=== PATIENT | female | born 1970 | race Caucasian/White ===

== ENCOUNTER 2019-03-11 15:24 | Emergency (ER) | payer OTHER ==
[~2019-03-11] VITALS: Ht 157.5 cm; Wt 57.7 kg
[2019-03-11 15:45] VITALS: Ht 157.5 cm; Wt 57.7 kg
[2019-03-11] MEDS ORDERED: ESCI20TA38 PO (16:06)
[2019-03-11] MEDS ORDERED: ALPR2TAB PO (16:06)
[2019-03-11] MEDS ORDERED: MIRT30TA5 PO (16:07)
[2019-03-11] MEDS ORDERED: BUSP15TA3 PO (16:08)
[2019-03-11] MEDS ORDERED: DICY10CA40 PO (16:51)
--- NOTE | 2019-03-11 16:51 | ERD ---
ER Documentation Chief Complaint Chief Complaint BIB RA from clinic: RLQ AP x1d, RLE numbness x1.5 weeks HPI This 48-year-old female who says that she was seen in outside ER for right foot numbness and had a work-up that was negative. She thought her numbness to return recently been 2 weeks. Told her that peripheral neuropathy can take up to 6 months. She is also stating that she ate some fatty food and then about 30 minutes later had sharp stabbing with crampy right upper quadrant pain with nausea vomiting x1 that was nonbilious nonbloody. The time EMS arrived her pain is gone. She had no chest pain or shortness of breath at all. Currently she is completely asymptomatic ROS All systems reviewed and are negative except as per history of present illness. Medications Home Meds Reported Medications Buspirone Hcl* (Buspirone Hcl*) 15 Mg Tablet, 15 MG PO TID, TAB 03/11/19 Mirtazapine* (Mirtazapine*) 30 Mg Tablet, 30 MG PO HS, TAB 03/11/19 Escitalopram Oxalate* (Escitalopram Oxalate*) 20 Mg Tablet, 20 MG PO DAILY, #30 TAB 03/11/19 Alprazolam* (Xanax*) 2 Mg Tablet, 1 MG PO BID PRN for ANXIETY, TAB 03/11/19 Allergies Allergies: Coded Allergies: No Known Allergy (Unverified , 03/11/19) PMhx/Soc History of Surgery: No Anesthesia Reaction: No Hx Neurological Disorder: No Hx Respiratory Disorders: No Hx Cardiac Disorders: No Hx Psychiatric Problems: No Hx Miscellaneous Medical Probl: No Hx Alcohol Use: No Hx Substance Use: No Hx Tobacco Use: No Smoking Status: Current every day smoker FmHx Family History: No coronary disease Physical Exam Vitals Vital Signs Date Temp Pulse Resp B/P (MAP) Pulse Ox O2 O2 Flow FiO2 Time Delivery Rate 03/11/19 97.9 86 15 113/92 100 15:45 (99) 03/11/19 98.2 97 18 125/86 98 15:42 (99) Physical Exam Const: Well-developed, well-nourished Head: Atraumatic, normocephalic Eyes: Normal Conjunctiva, PERRLA, EOMI, normal sclera, no nystagmus ENT: Normal External Ears, Nose and Mouth, moist mucus membranes. Neck: Full range of motion. No meningismus, no lymphadenopathy. Resp: Clear to auscultation bilaterally, no wheezing, rhonchi, rales Cardio: Regular rate and rhythm, no murmurs, S1 S2 present Abd: Soft, non tender x 4, non distended. Normal bowel sounds, no guarding or rebound, no pulsitile abdominal masses or bruits Skin: No petechiae or rashes, no ecchymosis , no maculopapular rash Back: No midline or flank tenderness Ext: No cyanosis, or edema, FROM x 4, normal inspection, neurovascularly intact x 4 Neur: Awake and alert, STR 5/5 x 4, sensation intact x 4, no focal findings, cerebellum intact Psych: Normal Mood and Affect Procedures/MDM MR #: [id number] DOS: 03/11/19 1552 Ordering MD: JOHANNA TSANG DO Location: E/R Room/Bed: PROCEDURE: US Abdomen (right upper quadrant). CLINICAL INDICATION: Abdominal pain TECHNIQUE: Multiple real-time longitudinal and transverse images of the right upper quadrant of the abdomen were acquired utilizing a curved array transducer. Images were reviewed on a high-resolution PACS workstation. COMPARISON: None FINDINGS: The liver is normal in size and demonstrates diffusely increased echogenicity without focal mass or intrahepatic biliary dilatation. The gallbladder is normal. There is no pericholecystic fluid or gallbladder wall thickening or gallstones. No intra or extrahepatic biliary dilatation is seen. The common bile duct measures 3.5 mm in maximal dimension. The visualized portions of the pancreas are unremarkable with obscuration of the tail of the pancreas. No free fluid is identified. The right kidney measures 9.0 cm in length. There is normal echogenicity within the right kidney. There is no perinephric fluid collection. No hydronephrosis, mass, or calculus is seen. IMPRESSION: Diffusely increased hepatic echogenicity suggestive of steatosis. Otherwise, unremarkable right upper quadrant ultrasound. RPTAT: JJ .Heber Desia MD, MD Date Time Electronically viewed and signed by .Heber Desai MD, on 03/11/2019 16:12 .A/ CC: JOHANNA TSANG DO [id number] Patient may have had some biliary colic or gallbladder spasm. She has no pain whatsoever now she has no evidence of gallstones. The patient refused all blood work whatsoever. Will discharge home with chronic peripheral neuropathy and biliary colic Departure Diagnosis: Primary Impression: Biliary colic Additional Impression: Paresthesia Condition: Stable JOHANNA TSANG DO Mar 11, 2019 16:51
[2019-03-11 17:25] VITALS: BP 105/69; PULSE 102; RESP 17
== END 2019-03-11 17:29 | disposition home or self-care (01) ==
LOC: E/R 15:24
DX: K80.50 Calculus of bile duct without cholangitis or cholecystitis without obstruction (principal); R20.2 Paresthesia of skin; F17.210 Nicotine dependence, cigarettes, uncomplicated
CPT/HCPCS: 76705; Z7502